=== PATIENT | female | born 1940 | race Caucasian/White ===

== ENCOUNTER → 2023-09-01 | Outpatient (CLI) | payer MEDICARE, OTHER ==
[2023-09-01 17:32] LABS: BASOPHILS ABSOLUTE AUTO 0.05 K/mm3 (0.00-0.23); BASOPHILS PERCENT AUTO 1 % (0-2); EOSINOPHILS ABSOLUTE AUTO 0.54 K/mm3 (0.00-0.68); EOSINOPHILS PERCENT AUTO 7 % (0-6); Hematocrit 39.3 % (33.0-51.0); Hemoglobin 13.1 g/dL (11.5-16.0); IMMATURE GRAN ABSOLUTE AUTO 0.02 K/mm3 (0.00-0.10); IMMATURE GRAN PERCENT AUTO 0 % (0-1); LYMPHOCYTES ABSOLUTE AUTO 1.24 K/mm3 (0.84-5.20); LYMPHOCYTES PERCENT AUTO 15 % (21-46); MONOCYTES ABSOLUTE AUTO 0.78 K/mm3 (0.16-1.47); MONOCYTES PERCENT AUTO 10 % (4-13); Mean Corpuscular HGB 30.6 pg (26.0-34.0); Mean Corpuscular HGB Conc 33.3 g/dL (31.5-36.5); Mean Corpuscular Volume 92 fL (80-100); Mean Platelet Volume 11.7 fL (9.1-12.4); NEUTROPHILS ABSOLUTE AUTO 5.54 K/mm3 (1.96-9.15); NEUTROPHILS PERCENT AUTO 68 % (41-73); Platelet Count 227 K/mm3 (150-400); RDW Coefficient Variation 12.6 % (11.7-14.2); RDW Standard Deviation 42.3 fL (35.1-46.3); Red Blood Cell Count 4.28 M/mm3 (3.80-5.20); White Blood Cell Count 8.17 K/mm3 (4.00-11.30)
[2023-09-01 17:51] LABS: Albumin, Blood 3.5 g/dL (3.4-5.0); Albumin/Globulin Ratio 0.9 (0.8-1.8); Bilirubin, Total 0.2 mg/dL (0.1-1.0); Bun/Creatinine Ratio 55.2 (12.0-20.0); Calcium, Blood 9.1 mg/dL (8.5-10.1); Creatinine, Blood 0.63 mg/dL (0.40-1.00); Potassium, Blood 4.1 mmol/L (3.5-5.5); Total Protein, Blood 7.5 g/dL (6.4-8.2)
== END | disposition home or self-care (01) ==
LOC: LAB SHORT 16:20 → LAB 16:20
PROVIDERS: Family Medicine
DX: R30.0 Dysuria (principal); I10 Essential (primary) hypertension
CPT/HCPCS: 80053; 85025; 87077; 87086; 87186

== ENCOUNTER → 2024-06-07 | Outpatient (CLI) | payer MEDICARE, OTHER ==
[2024-06-07 19:08] LABS: CHOL/HDL RATIO 2.5; Cholesterol 205 mg/dL (50-200); HDL Cholesterol 83 mg/dL (>39); LDL/HDL RATIO 1.3; Low Density Lipoprotein Chol 111 mg/dL (0-110); Triglycerides 55 mg/dL (30-160); Very Low Density Lipoprot Chol 11 mg/dL (6-32)
== END ==
LOC: LAB 17:18 → LAB SHORT 17:18
PROVIDERS: General Practice
DX: Z13.6 Encounter for screening for cardiovascular disorders (principal)
CPT/HCPCS: 80061

== ENCOUNTER 2025-06-11 12:40 | Day surgery (SDC) | payer MEDICARE, OTHER ==
[~2025-06-11] VITALS: Ht 154.9 cm; Wt 46.0 kg
[~2025-06-11 12:40] MED LIST: Glycopyrrolate 0.2 MG/ML 1MLVIAL ONE; Ondansetron HCl 2 MG / ML 2ML Vial ONE; ePHEDrine Sulfate 50 MG/ML 1ML Injection ONE
[2025-06-11] MEDS ORDERED: LOSARTAN POTASS25 M2 PO (13:17)
[2025-06-11] MEDS ORDERED: OMEPRAZOLE DR 20 MG (13:18)
[2025-06-11] MEDS ORDERED: Ondansetron HCl 2 MG / ML 2ML Vial ONE (14:03)
--- NOTE | 2025-06-11 15:11 | NUR ---
06/11/25 1511 Debbie Mcgarry 1504: PATIENT ASSISTED TO RESTROOM VIA WC WITH ORD.TCR TO ASSIST WITH DRESSING.
[2025-06-11 15:13] VITALS: BP 137/76
--- NOTE | 2025-06-11 15:24 | NUR ---
06/11/25 1524 Adolfo Schulz PT NOTED TO HAVE OCCASIONAL, VERY BRIEF PAUSES ON THREE LEAD ECG WHILE WAKING AFTER PROCEDURE. PAUSES ENDED AFTER PT WOKE. SHE DENIED CP, DIZZINESS, SOB, AND OTHER SYMPTOMS AFTER WAKING. DR. GREGORIO CONSULLTED AND APPROVED TRANSFER TO RECOVERY. PT REPORTED NAUSEA IN PRE-OP. 4MG, IV, ZOFRAN GIVEN PRIOR TO PROCEDURE START, PER DR. GREGORIO ORDERS.
== END 2025-06-11 15:25 | disposition home or self-care (01) ==
LOC: ORSCSDS 12:40
PROVIDERS: Specialist
PROC: 0DJ08ZZ Inspection of Upper Intestinal Tract, Via Natural or Artificial Opening Endoscopic (ICD-10-PCS; principal; 2025-06-11 15:15)
DX: R13.10 Dysphagia, unspecified (principal); K22.10 Ulcer of esophagus without bleeding; K44.9 Diaphragmatic hernia without obstruction or gangrene
CPT/HCPCS: J0461; J2003; J2405; J2704; J7120; Q9968

== ENCOUNTER 2025-09-10 06:35 | Day surgery (SDC) | payer MEDICARE, OTHER ==
[~2025-09-10] VITALS: Ht 154.9 cm; Wt 46.4 kg
[~2025-09-10 06:35] MED LIST changes: -Glycopyrrolate 0.2 MG/ML 1MLVIAL ONE; +LOSARTAN POTASS25 M2 PO; +OMEPRAZOLE DR 20 MG; -Ondansetron HCl 2 MG / ML 2ML Vial ONE; -ePHEDrine Sulfate 50 MG/ML 1ML Injection ONE
[2025-09-10 11:01] VITALS: BP 122/66
== END 2025-09-10 09:06 | disposition home or self-care (01) ==
LOC: ORSCSDS 06:35
PROVIDERS: Internal Medicine Gastroenterology
PROC: 0DJ08ZZ Inspection of Upper Intestinal Tract, Via Natural or Artificial Opening Endoscopic (ICD-10-PCS; principal; 2025-09-10 08:00)
DX: K22.10 Ulcer of esophagus without bleeding (principal); K44.9 Diaphragmatic hernia without obstruction or gangrene; R13.10 Dysphagia, unspecified; K21.9 Gastro-esophageal reflux disease without esophagitis; Z86.73 Personal history of transient ischemic attack (TIA), and cerebral infarction without residual deficits; Z79.899 Other long term (current) drug therapy
CPT/HCPCS: J2704; J7120